=== PATIENT | female | born 1945 | race Caucasian/White ===

== ENCOUNTER → 2017-12-23 | Outpatient (CLI) | payer OTHER | LOC: CIMAGING 08:44 | PROVIDERS: ATTEND Internal Medicine | DX: Z12.31 Encounter for screening mammogram for malignant neoplasm of breast (principal) ==

== ENCOUNTER → 2018-03-02 | Outpatient (CLI) | payer OTHER | LOC: BMCIMAGING 15:24 | PROVIDERS: ATTEND Internal Medicine | DX: R09.02 Hypoxemia (principal) ==

== ENCOUNTER → 2018-05-05 | Outpatient (CLI) | payer OTHER | LOC: BHFA 13:30 | PROVIDERS: ATTEND Internal Medicine Cardiovascular Disease | DX: R06.02 Shortness of breath (principal); I10 Essential (primary) hypertension ==

== ENCOUNTER → 2018-05-30 | Outpatient (CLI) | payer OTHER ==
[~2018-05-30] MED LIST: IOPAMIDOL (ISOVUE 370) 100 ML BTL IV ONE
== END ==
LOC: CIMAGING 10:43
PROVIDERS: ATTEND Internal Medicine
DX: R09.02 Hypoxemia (principal); R06.02 Shortness of breath; R00.0 Tachycardia, unspecified; E66.9 Obesity, unspecified; Z79.01 Long term (current) use of anticoagulants
CPT/HCPCS: 71275; Q9967; 82565-PO

== ENCOUNTER → 2018-07-14 | Outpatient (CLI) | payer OTHER | LOC: SBRMNEURO 21:00 | PROVIDERS: ATTEND Physician Assistant Medical | DX: G47.33 Obstructive sleep apnea (adult) (pediatric) (principal); G47.36 Sleep related hypoventilation in conditions classified elsewhere ==

== ENCOUNTER → 2019-04-13 | Outpatient (CLI) | payer OTHER | LOC: BMCIMAGING 12:26 | PROVIDERS: ATTEND Internal Medicine | DX: Z12.31 Encounter for screening mammogram for malignant neoplasm of breast (principal) ==

== ENCOUNTER → 2019-05-16 | Outpatient (CLI) | payer OTHER | LOC: FIMAGING 11:06 ==